=== PATIENT | female | born 1980 | race Caucasian/White ===

== ENCOUNTER 2017-12-22 09:56 | Day surgery (SDC) | payer OTHER ==
[~2017-12-22] VITALS: Ht 165.1 cm; Wt 107.2 kg
[~2017-12-22 09:56] MED LIST: ACEBUTCAFT PO; ALBU90OI INH; BENZ100A PO; BUPR150ER PO; CEPH500 PO; CODBUTACEC PO; CYCL10 PO; Cyclobenzaprine5 MG; DARVOCET; DIAZ5 PO; DIPH50 PO; EPINEPHRIN0.3 MG/0.3; ERGO50000; Flonase 0.05% N16 GM; GABA300; IBUP800 PO; KETO10 PO; Keflex500 MG PO; LIDO2L PO; METO10 PO; Metamucil Smooth1 EA; NAPR220; NAPR250 PO; NAPR500 PO; OMEP40CA12 PO; ONDA4ODT MM; OXYACE5T PO; OXYB5 PO; PANT20; PROBIOTIC1 EAC1; PROM25; PROM25 PO; Percocet 5-3251 EACH PO; Phentermine HCl30 MG; Prednisone20 MG PO; TOPI100 PO; TOPI50 PO; TRAM50 MT; TRAM50 PO; TRAZ100 PO; ZOLP5 PO; Zithromax250 MG PO; Zofran4 MG
== END 2017-12-22 12:30 | disposition home or self-care (01) ==
LOC: ORSCSDS 09:56
PROVIDERS: Internal Medicine Gastroenterology
PROC: 0D758ZZ Dilation of Esophagus, Via Natural or Artificial Opening Endoscopic (ICD-10-PCS; principal; 2017-12-22 12:30)
DX: R13.10 Dysphagia, unspecified (principal); K44.9 Diaphragmatic hernia without obstruction or gangrene; K22.8 Other specified diseases of esophagus; E78.5 Hyperlipidemia, unspecified; F17.210 Nicotine dependence, cigarettes, uncomplicated; Z79.899 Other long term (current) drug therapy
CPT/HCPCS: J2250; J7120

== ENCOUNTER 2018-10-06 14:07 | Emergency (ER) | payer OTHER ==
[~2018-10-06] VITALS: Ht 162.6 cm; Wt 72.6 kg
[2018-10-06] MEDS ORDERED: CYCL10 PO (15:19)
[2018-10-06] MEDS ORDERED: Ultram50 MG PO (15:19)
[2018-10-06] MEDS ORDERED: KETO10 PO (15:19)
== END 2018-10-06 15:40 | disposition home or self-care (01) ==
LOC: ER 14:07
DX: S76.912A Strain of unspecified muscles, fascia and tendons at thigh level, left thigh, initial encounter (principal); F17.210 Nicotine dependence, cigarettes, uncomplicated; X58.XXXA Exposure to other specified factors, initial encounter
CPT/HCPCS: 73502; 99283-25

== ENCOUNTER → 2021-01-25 | Outpatient (CLI) | payer OTHER ==
[~2021-01-25] MED LIST changes: +Ultram50 MG PO
== END | disposition home or self-care (01) ==
LOC: LAB 08:20 → LAB SHORT 08:20
DX: N30.00 Acute cystitis without hematuria (principal)
CPT/HCPCS: 87086

== ENCOUNTER 2021-08-23 09:37 | Day surgery (SDC) | payer OTHER ==
[~2021-08-23] VITALS: Ht 165.1 cm; Wt 104.6 kg
--- NOTE | 2021-08-23 10:40 | NUR ---
08/23/21 1040 Leigh Orellana PATIENT C/O MIGRAINE SINCE 08/22/21 @ 1900. PT HAS NOT TAKEN ANYTHING AT THIS TIME FOR HER MIGRAINE. PT IN ROOM WITH LIGHTS OUT.
== END 2021-08-23 12:05 | disposition home or self-care (01) ==
LOC: ORSCSDS 09:37
PROVIDERS: Internal Medicine Gastroenterology
PROC: 0D757ZZ Dilation of Esophagus, Via Natural or Artificial Opening (ICD-10-PCS; principal; 2021-08-23 11:30)
PROC: 0DJ08ZZ Inspection of Upper Intestinal Tract, Via Natural or Artificial Opening Endoscopic (ICD-10-PCS; principal; 2021-08-23 11:30)
DX: R13.10 Dysphagia, unspecified (principal); Z87.19 Personal history of other diseases of the digestive system; F17.210 Nicotine dependence, cigarettes, uncomplicated; Z79.899 Other long term (current) drug therapy
CPT/HCPCS: J2704; J7120

== ENCOUNTER → 2022-04-03 | Outpatient (CLI) | payer OTHER ==
[2022-04-08 13:16] LABS: CHLAMYDIA TRACHOMATIS, NAA Positive (Negative)
== END | disposition home or self-care (01) ==
LOC: LAB 08:56 → LAB SHORT 08:56
PROVIDERS: Nurse Practitioner Family
DX: Z72.51 High risk heterosexual behavior (principal)
CPT/HCPCS: 87491; 87591

== ENCOUNTER 2022-11-03 07:55 | Emergency (ER) | payer OTHER ==
[~2022-11-03] VITALS: Ht 165.1 cm; Wt 104.3 kg
[2022-11-03 08:09] VITALS: BP 124/75
[2022-11-03] MEDS ORDERED: CYCL10 PO ×2 (08:24)
== END 2022-11-03 08:35 | disposition home or self-care (01) ==
LOC: ER 07:55
DX: R51.9 Headache, unspecified (principal); F17.210 Nicotine dependence, cigarettes, uncomplicated; Z88.5 Allergy status to narcotic agent; Z88.6 Allergy status to analgesic agent; Z91.030 Bee allergy status
CPT/HCPCS: J1885

== ENCOUNTER → 2023-01-17 | Outpatient (CLI) | payer OTHER ==
[2023-01-17 17:51] LABS: Alanine Aminotransfer (ALT/SGP 48 U/L (12-78); Albumin, Blood 3.9 g/dL (3.4-5.0); Albumin/Globulin Ratio 1.3 (0.8-1.8); Alk Phos 75 U/L (50-136); Anion Gap 4 mmol/L (6-16); Aspartate Aminotrans (AST/SGOT 31 U/L (12-37); Bilirubin, Total 0.1 mg/dL (0.1-1.0); Blood Urea Nitrogen 16 mg/dL (8-24); Bun/Creatinine Ratio 20.1 (12.0-20.0); CHOL/HDL RATIO 5.3; CO2, Blood 25 mmol/L (21-32); Calcium, Blood 9.1 mg/dL (8.5-10.1); Chloride, Blood 110 mmol/L (98-108); Cholesterol 259 mg/dL (50-200); Globulin, Blood 3.1 g/dL (2.2-4.0); Glomerular Filtration Rate 93 (60-); Glucose, Blood 101 mg/dL (70-99); HDL Cholesterol 49 mg/dL (>39); LDL/HDL RATIO 3.2; Low Density Lipoprotein Chol 159 mg/dL (0-110); Potassium, Blood 4.5 mmol/L (3.5-5.5); Sodium, Blood 139 mmol/L (136-145); Triglycerides 254 mg/dL (30-160); Very Low Density Lipoprot Chol 50 mg/dL (6-32)
== END ==
LOC: LAB SHORT 08:56 → LAB 08:56
PROVIDERS: Physician Assistant
DX: Z00.00 Encounter for general adult medical examination without abnormal findings (principal)
CPT/HCPCS: 80053; 80061

== ENCOUNTER 2023-06-18 12:44 | Day surgery (SDC) | payer OTHER ==
[~2023-06-18] VITALS: Ht 165.1 cm; Wt 101.8 kg
--- NOTE | 2023-06-18 14:05 | NUR ---
06/18/23 1405 Priyanka Victoria 4% LIDOCAINE PULLED FOR MD PALMA TO USE PRIOR TO EGD IN THROAT OF PT.
[2023-06-18 15:22] VITALS: BP 108/85
== END 2023-06-18 15:18 | disposition home or self-care (01) ==
LOC: ORSCSDS 12:44
PROVIDERS: Specialist
PROC: 0DB58ZX Excision of Esophagus, Via Natural or Artificial Opening Endoscopic, Diagnostic (ICD-10-PCS; principal; 2023-06-18 14:30)
PROC: 0D758ZZ Dilation of Esophagus, Via Natural or Artificial Opening Endoscopic (ICD-10-PCS; principal; 2023-06-18 14:30)
DX: R13.10 Dysphagia, unspecified (principal); Z87.19 Personal history of other diseases of the digestive system; E78.5 Hyperlipidemia, unspecified; Z79.899 Other long term (current) drug therapy
CPT/HCPCS: 88305; J0461; J2001; J2405; J2704; J7120

== ENCOUNTER 2024-03-09 10:36 | Day surgery (SDC) | payer OTHER ==
[~2024-03-09] VITALS: Ht 165.1 cm; Wt 90.5 kg
[~2024-03-09 10:36] MED LIST changes: +Lactated Ringer's 1,000 ML IV ONE; +propofoL 50 ML IV ONE
[2024-03-09] MEDS ORDERED: ONDA4ODT (10:57)
[2024-03-09] MEDS ORDERED: MELO7.5 (10:58)
[2024-03-09] MEDS ORDERED: BUTALB-CAFF-AC1 EACH (10:58)
[2024-03-09] MEDS ORDERED: Adipex-P37.5 M1 (11:00)
[2024-03-09] MEDS ORDERED: CELE200 (11:01)
[2024-03-09] MEDS ORDERED: Lactated Ringer's 1,000 ML IV ONE (11:19)
[2024-03-09 11:58] VITALS: BP 113/78
== END 2024-03-09 12:02 | disposition home or self-care (01) ==
LOC: ORSCSDS 10:36
PROVIDERS: Specialist
PROC: 0DB58ZX Excision of Esophagus, Via Natural or Artificial Opening Endoscopic, Diagnostic (ICD-10-PCS; principal; 2024-03-09 12:45)
PROC: 0D758ZZ Dilation of Esophagus, Via Natural or Artificial Opening Endoscopic (ICD-10-PCS; principal; 2024-03-09 12:45)
DX: R13.10 Dysphagia, unspecified (principal); F17.210 Nicotine dependence, cigarettes, uncomplicated; Z79.899 Other long term (current) drug therapy
CPT/HCPCS: 88305; C1769; J2704; J7120

== ENCOUNTER → 2024-04-14 | Outpatient (CLI) | payer OTHER ==
[~2024-04-14] MED LIST changes: +Adipex-P37.5 M1; +BUTALB-CAFF-AC1 EACH; +CELE200; -Lactated Ringer's 1,000 ML IV ONE; +MELO7.5; +ONDA4ODT; -propofoL 50 ML IV ONE
[2024-04-14 19:15] LABS: Candida Group, PCR NOT DETECTED (NOT DETECT); Candida glabrata-krusei, PCR NOT DETECTED (NOT DETECT)
[2024-04-14 20:35] LABS: Bacterial Vaginosis PCR Positive (NEGATIVE)
[2024-04-16 21:29] LABS: APTIMA MEDIA TYPE Unisex Swab; C. TRACHOMATIS BY TMA Negative (Negative); N. GONORRHOEAE BY TMA Negative (Negative); SPECIMEN SOURCE Vaginal
== END ==
LOC: LAB 15:04 → LAB SHORT 15:04
PROVIDERS: Physician Assistant
DX: Z11.3 Encounter for screening for infections with a predominantly sexual mode of transmission (principal)
CPT/HCPCS: 87481; 87491; 87591; 87661; 87801

== ENCOUNTER 2024-12-02 08:54 | Day surgery (SDC) | payer OTHER ==
[~2024-12-02] VITALS: Ht 165.1 cm; Wt 89.4 kg
[~2024-12-02 08:54] MED LIST changes: +Lactated Ringer's 1,000 ML IV ONE; +propofoL 50 ML IV ONE
[2024-12-02] MEDS ORDERED: OMEP20ER (09:53)
[2024-12-02] MEDS ORDERED: CELEBREX200 MG (09:53)
[2024-12-02] MEDS ORDERED: IPRAT-ALBUT 0.5-3 ML (09:54)
[2024-12-02] MEDS ORDERED: CYCL10 (09:54)
[2024-12-02] MEDS ORDERED: IMITREX50 M1 (09:54)
[2024-12-02] MEDS ORDERED: TIZA4 (09:54)
[2024-12-02] MEDS ORDERED: Lactated Ringer's 1,000 ML IV ONE (10:14)
[2024-12-02 11:38] VITALS: BP 113/75
== END 2024-12-02 11:42 | disposition home or self-care (01) ==
LOC: ORSCSDS 08:54
PROVIDERS: Specialist
PROC: 0D758ZZ Dilation of Esophagus, Via Natural or Artificial Opening Endoscopic (ICD-10-PCS; principal; 2024-12-02 10:45)
PROC: 0DJD8ZZ Inspection of Lower Intestinal Tract, Via Natural or Artificial Opening Endoscopic (ICD-10-PCS; principal; 2024-12-02 10:45)
DX: Z12.11 Encounter for screening for malignant neoplasm of colon (principal); Z86.018 Personal history of other benign neoplasm; K21.9 Gastro-esophageal reflux disease without esophagitis; Z86.0102 Personal history of hyperplastic colon polyps; G47.33 Obstructive sleep apnea (adult) (pediatric); Z87.891 Personal history of nicotine dependence; Z79.899 Other long term (current) drug therapy
CPT/HCPCS: 43248; G0105; C1769; J2704; J7120